=== PATIENT | female | born 1960 ===

== ENCOUNTER 2017-03-27 12:03 | Emergency (ER) | payer OTHER ==
[2017-03-27 12:13] VITALS: BMI 25.0
[2017-03-27 12:15] VITALS: BP 141/75; PULSE 80; RESP 18; TEMP 97.9; O2SAT 97
--- NOTE | 2017-03-27 12:45 | ED PDOC ---
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 denies: Fever, Chills, Nausea, Vomiting Additional Complaint(s): 56 year old female with history of diabetes and hypothyroidism presents to the ED with complaints of a female genitourinary problem. She reports that she has been experiencing frequency, dysuria, and hematuria for the past 3x days. She has associated symptoms of lower abdominal and lower back pain, but denies having a fever, chills, nausea, vomiting, and abnormal vaginal bleeding or discharge. Patient denies concern for STD. PMD: Suzanne La CNP Abnormal Vaginal Bleeding: No Past Medical History Reviewed: Historical Data, Nursing Documentation, Vital Signs Vital Signs: Last Vital Signs Temp 97.9 F 03/27/17 12:28 Pulse 80 03/27/17 12:28 Resp 18 03/27/17 12:28 BP 141/75 03/27/17 12:28 Pulse Ox 97 03/27/17 12:28 - Medical History PMH: Diabetes, Hypothyroidism - Surgical History Other surgeries: tubal ligation - Family History Family History: States: No Known Family Hx - Living Arrangements Living Arrangements: With Family - Social History Current smoker - smoking cessation education provided: No Alcohol: None Drugs: Denies - Home Medications Home Medications: Ambulatory Orders Medication Instructions Recorded Ciprofloxacin [Cipro] 500 mg PO BID #14 tab 03/27/17 Levothyroxine [Synthroid] 1 tab PO DAILY 03/27/17 Phenazopyridine HCl [Pyridium] 200 mg PO TID PRN #6 tablet 03/27/17 Sitagliptin Phos/Metformin HCl 1 tab PO BID 03/27/17 [Janumet 50-1,000 mg Tablet] - Allergies Allergies/Adverse Reactions: Allergies Allergy/AdvReac Type Severity Reaction Status Date / Time No Known Allergies Allergy Verified 03/27/17 12:28 Review of Systems ROS Statement: Except As Marked, All Systems Reviewed And Found Negative Constitutional: Negative for: Fever, Chills Gastrointestinal: Positive for: Abdominal Pain (lower). Negative for: Nausea, Vomiting Genitourinary Female: Positive for: Dysuria, Frequency, Hematuria. Negative for : Incontinence, Vaginal Discharge, Vaginal Bleeding Musculoskeletal: Positive for: Back Pain (lower) Physical Exam - Reviewed Nursing Documentation Reviewed: Yes Vital Signs Reviewed: Yes - Physical Exam Appears: Positive for: Well, Non-toxic, No Acute Distress Head Exam: Positive for: ATRAUMATIC, NORMOCEPHALIC Skin: Positive for: Normal Color, Warm, Dry Cardiovascular/Chest: Positive for: Regular Rate, Rhythm, Chest Non Tender Respiratory: Positive for: Normal Breath Sounds. Negative for: Accessory Muscle Use, Respiratory Distress Gastrointestinal/Abdominal: Positive for: Normal Exam, Soft. Negative for: Tenderness, Distended, Guarding, Rebound Back: Positive for: Normal Inspection. Negative for: L CVA Tenderness, R CVA Tenderness, Vertebral Tenderness Neurologic/Psych: Positive for: Alert, Oriented (3x) - Laboratory Results Urine dip results: Positive for: Leukocyte Esterase (large), Blood (moderate), Nitrate (positive) - ECG O2 Sat by Pulse Oximetry: 97 (RA) Pulse Ox Interpretation: Normal Medical Decision Making Medical Decision Makin:31 Initial impression: 56 year old female patient with dysuria. Initial plan: * udip * upreg * urine culture Urine dip is positive for UTI. Patient was medicated with Motrin 600 mg tablet, Pyridium 200 mg tablet and an initial dose of Cipro 500 mg twice a day. Prescription given for Cipro and Pyridium. Patient was advised to drink plenty fluids and was instructed to follow up with primary doctor in 2-3 days. Scribe Attestation: Documented by Didi Pittman, acting as a scribe for Pretty Amsellem PA-C. Provider Scribe Attestation: All medical record entries made by the Scribe were at my direction and personally dictated by me. I have reviewed the chart and agree that the record accurately reflects my personal performance of the history, physical exam, medical decision making, and the department course for this patient. I have also personally directed, reviewed, and agree with the discharge instructions and disposition. Disposition - Clinical Impression Clinical Impression: Urinary tract infection - Patient ED Disposition Is Patient to be Admitted: No Counseled Patient/Family Regarding: Studies Performed, Diagnosis, Need For Followup, Rx Given - Disposition Referrals: Suzanne La APN [Advanced Practice Nurse] - Disposition: Routine/Home Disposition Time: 13:25 Condition: STABLE Additional Instructions: Prescription medications as directed. Drink plenty of fluids. Follow-up with primary doctor in 1-2 days. Prescriptions: Ciprofloxacin [Cipro] 500 mg PO BID #14 tab Phenazopyridine HCl [Pyridium] 200 mg PO TID PRN #6 tablet PRN Reason: Bladder Spasm Instructions: Urinary Tract Infection in Women (ED) Print Language: LIBERIAN
== END 2017-03-27 13:31 | disposition home or self-care (01) ==
LOC: H.ER 12:03
DX: N39.0 Urinary tract infection, site not specified (principal)